=== PATIENT | male | born 1975 | race Caucasian/White ===

== ENCOUNTER 2020-03-22 10:30 | Emergency (ER) | payer SELFPAY ==
[2020-03-22] MEDS ORDERED: DIPH/PERTUSS(ACELL)/TETANUS VAC/PF 0.5 ML SYR (>=10YO) IM ONE (10:38)
[2020-03-22 10:39] VITALS: BP 131/90
--- NOTE | 2020-03-22 10:42 | ER Document Report ---
ED General - General Stated Complaint: FALL Notes: 44-year male presents for tetanus shot. He has mild pain in the left buttocks where he fell on a tianna nail yesterday. He has no redness drainage or swelling in his last tetanus shot was 7 years ago. Has no other complaints. Past Medical History - Social History Smoking Status: Current Every Day Smoker Family History: None Review of Systems - Review of Systems Notes: REVIEW OF SYSTEMS GEN: Denies fever, chills, weight loss ENT: Denies sore throat, nasal discharge, ear pain EYES: Denies blurry vision, eye pain, discharge CV: Denies chest pain, palpitations, edema RESP: Denies cough, shortness of breath, wheezing GI: Denies abdominal pain, nausea, vomiting, diarrhea MSK: Denies joint pain/swelling, edema, SKIN: Denies rash, skin lesions LYMPH: Denies swollen glands/lymph nodes NEURO: Denies headache, focal weakness or numbness, dizziness PSYCH: Denies depression, suicidal or homicidal ideation PHYSICAL EXAMINATION General: No acute distress, well-nourished Head: Atraumatic, normocephalic ENT: Mouth normal, oropharynx moist, lips normal Eyes: Conjunctiva normal, pupils equal, lids normal Neck: No JVD, supple, no guarding Resp: No resp distress, equal chest rise GI: Nondistended, no guarding Back: No midline or CVA tenderness Ext: No deformities, no edema Skin: Well-perfused, no rash appreciable puncture wound or wound on the buttocks. Neuro: Awake, alert. Face symmetric. Physical Exam - Vital signs Vitals: Temp Pulse Resp BP Pulse Ox 97.9 F 75 20 131/90 H 96 03/22/20 10:36 03/22/20 10:36 03/22/20 10:36 03/22/20 10:36 03/22/20 10:36 Course - Re-evaluation Re-evalutation: 03/22/20 10:39 Encounter for tetanus vaccine after inconsequential puncture wound No infection no deep structure injury. Tetanus discharge. I have discussed with the patient there likely diagnosis, aftercare plan, follow-up plans and my usual and customary return precautions. They verbalized understanding of this. - Vital Signs Vital signs: Temp Pulse Resp BP Pulse Ox 97.9 F 75 20 131/90 H 96 03/22/20 10:36 03/22/20 10:36 03/22/20 10:36 03/22/20 10:36 03/22/20 10:36 Discharge - Discharge Clinical Impression: Puncture wound of buttock Qualifiers: Encounter type: initial encounter Laterality: left Qualified Code(s): S31.823A - Puncture wound without foreign body of left buttock, initial encounter Condition: Good Disposition: ADMITTED INPATIENT
== END 2020-03-22 11:02 | disposition other institution (70) ==
LOC: ER 10:30
DX: S31.823A Puncture wound without foreign body of left buttock, initial encounter (principal); W19.XXXA Unspecified fall, initial encounter; W45.0XXA Nail entering through skin, initial encounter; Y92.009 Unspecified place in unspecified non-institutional (private) residence as the place of occurrence of the external cause; Z23 Encounter for immunization; F17.200 Nicotine dependence, unspecified, uncomplicated
CPT/HCPCS: 90471; 90715; 99282